=== PATIENT | male | born 2000 | race Caucasian/White ===

== ENCOUNTER 2023-01-22 09:52 | Outpatient (CLI) | payer BC, OTHER, SELFPAY ==
--- NOTE | ~2023-01-22 | MR_ITS ---
EXAMINATION: MR knee LT wo con DATE: 01/22/2023 10:43 INDICATION: knee loose body TECHNIQUE: Magnetic resonance imaging (MRI) of the knee was performed without intravenous contrast. S equences included axial PD-weighted FS FSE, coronal PD-weighted FSE and PD-weighted FS FSE, sagittal PD-weighted FSE, and sagittal T2-weighted FS FSE. COMPARISON: None. FINDINGS: Medial compartment: Minimal meniscal blunting 11 x 19 mm osteochondral lesion with joint fluid insinuating around the fra gment/fragments. Degenerative subcortical cyst formation deep to the lesion. Lateral compartment: Meniscus and cartilage intact. Patellofemoral compartment: Cartilage and retinacula intact. Ligaments and tendons: MCL thickening as can be seen with chronic partial tear. The ACL, PCL, and LCL are intact. Remaining flexor and extensor tendons are intact. Fluid: Large volume knee joint fluid. Osseous/other: No suspicious focal or diffuse marrow signal. IMPRESSION: Large, nondisplaced osteochondral lesion on the medial femoral condyle, with detachment and adjacent subcortical cysts. Large joint effusion. Reviewed, dictated and finalized at location K. IMPRESSION: Large, nondisplaced osteochondral lesion on the medial femoral condyle, with de tachment and adjacent subcortical cysts. Large joint effusion.
== END 2023-01-22 09:53 | disposition home or self-care (01) ==
PROVIDERS: Visit Provider Orthopaedic Surgery
DX: M25.562 Pain in left knee (principal); M25.462 Effusion, left knee
CPT/HCPCS: 73721